=== PATIENT | male | born 1995 | race Caucasian/White ===

== ENCOUNTER 2024-05-12 23:14 | Emergency (ER) | payer BC ==
[~2024-05-12] VITALS: Ht 177.8 cm; Wt 90.7 kg
[2024-05-12] MEDS ORDERED: methylPREDNISolone sod succ 125 MG VIAL IM ONE (23:30)
[2024-05-12] MEDS ORDERED: Albuterol Sulf/Ipratropium 3 ML VIAL NEB ONE (23:30)
[2024-05-12] MEDS ORDERED: VENT7GM INH (23:51)
[2024-05-13] MEDS ORDERED: Albuterol Sulf/Ipratropium 3 ML VIAL NEB ONE (01:05)
[2024-05-13] MEDS ORDERED: PREDNISONE20 M1 PO (01:19)
== END 2024-05-13 01:29 | disposition home or self-care (01) ==
LOC: ED 23:14
DX: J45.901 Unspecified asthma with (acute) exacerbation (principal); R11.2 Nausea with vomiting, unspecified; M54.50 Low back pain, unspecified; Z79.899 Other long term (current) drug therapy